=== PATIENT | male | born 2000 | race Caucasian/White ===

== ENCOUNTER 2023-05-19 09:01 | Observation (INO) ==
[2023-05-19] MEDS ORDERED: ACETAMINOPHEN 500 MG TAB PO ONE (09:17)
[2023-05-19 09:35] LABS: Basophils # (auto) 0.03 K/uL (0-0.2); Basophils % (auto) 0.2 %; Eosinophils # (auto) 0.08 K/uL (0-0.50); Eosinophils % (auto) 0.6 %; Hematocrit (blood only) 46.9 % (42.0-52.0); Hemoglobin 16.2 g/dl (14.0-18.0); Immature Granulocytes # (auto) 0.05 K/uL (0.01-0.20); Immature Granulocytes % (auto) 0.3 %; Lymphocytes # (auto) 1.62 K/uL (1.2-3.4); Lymphocytes % (auto) 11.2 %; Mean Corpuscular Hemoglobin 30.4 pg (25.0-34.0); Mean Corpuscular Hgb Conc 34.5 g/dL (32.0-36.0); Mean Platelet Volume 9.4 fL (9.4-12.4); Monocytes # (auto) 0.84 K/uL (0.11-0.59); Monocytes % (auto) 5.8 %; Neutrophils # (auto) 11.85 K/uL (1.40-6.50); Neutrophils % (auto) 81.9 %; Platelet Count 232 K/uL (130-400); RDW Coefficient of Variation 12.3 % (11.5-14.5); RDW Standard Deviation 39.7 fL (36.4-46.3); Red Blood Count 5.33 M/uL (4.70-6.10); White Blood Count 14.47 K/ul (4.8-10.8)
[2023-05-19] MEDS ORDERED: SODIUM CHLORIDE 0.9% 1000ML 1,000 ML IV ONE (09:37)
[2023-05-19] MEDS ORDERED: KETOROLAC TROMETHAMINE 15 MG/ML VIAL IV ONE (09:37)
--- NOTE | 2023-05-19 09:39 | Emergency Department Note ---
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 P ain started last night and he questions if this is secondary to the pizza that he ate. He notes it is worse with movement as well as bending. Improves with laying still. Denies any headache or change in vision. No chest pain or shortness of breath. No dysuria, urgency, or frequency. No trauma. No other exacerbating or remitting factors. No previous abdominal surgeries. PAST MEDICAL HISTORY:See Below PAST SURGICAL HISTORY:See Below FAMILY HISTORY:See Below SOCIAL HISTORY:See Below HOME MEDICATIONS:See Below ALLERGIES:See Below VITALS:See Below PHYSICAL EXAMINATION: GENERAL: Sitting up in bed, alert, well appearing, well nourished, no distress, non-toxic EYE EXAM: normal conjunctiva. OROPHARYNX: no exudate, no erythema, lips, buccal mucosa, and tongue normal and mucous membranes are moist NECK: supple, no nuchal rigidity, no adenopathy, non-tender LUNGS: Clear to auscultation. Normal chest wall mechanics HEART: no murmurs, S1 normal and S2 normal ABDOMEN: abdomen soft, TTP in R mid abd, normo-active bowel sounds, no masses, no rebound or guarding. UPPER EXTREMITIES: upper extremities are grossly normal. LOWER EXTREMITIES: No pitting edema. NEURO EXAM: Normal sensorium, cranial nerves II-XII grossly intact, normal speech, no gross weakness of arms, no gross weakness of legs. MEDICAL DECISION MAKING: Patient is a 22-year-old male who presents ER for right mid abdominal pain. This started yesterday. IV was established blood work was obtained. Labs show leukocytosis of 14,000. No significant anemia. BMP along LFTs bilirubin and lipase is unremarkable. UA was clean. COVID was negative. CT abdomen pelvis confirms acute appendicitis. He was given IV Toradol, cefoxitin and Zofran. He was updated bedside and discussed with general surgery for further evaluation management treatment. Triage Nursing notes reviewed. Limited review of prior medical records performed Vital Signs: reviewed and remarkable for no significant abnormalities Differential diagnosis: Differential diagnoses includes but is not limited to gastritis, peptic ulcer disease, GERD, gallbladder disease, pancreatitis, small bowel obstruction, appendicitis, diverticulitis, hernia, urinary tract infection, torsion, perforation, trauma, infectious. ER treatment provided: See below Diagnostics interpreted by me include EKG and cardiac monitoring as listed below: -Cardiac Monitoring: An order was placed for continuous cardiac monitoring. The monitor shows a rate of 70 with sinus rhythm. -ECG: none -Laboratory studies:Interpreted by me as stated above in MDM and shown below. Imaging studies: Xrays: As interpreted by me:none CTs show: CT abdomen pelvis per my read shows no obvious bowel obstruction CT abdomen pelvis per radiology shows acute appendicitis Consultation(s): Discussed with Dr. Shaver Procedures:none Critical Care: None Past Med/Surg History Social History Smoking Status: Never smoker Preferred Language: Kyrgyz Feels Safe at Home: Yes Allergies Allergies Allergy/AdvReac Type Severity Reaction Status Date / Time azithromycin Allergy Anaphylaxis Verified 05/19/23 09:47 Home Meds Home Medications Medication Instructions Recorded Confirmed No Known Home Medications 05/19/23 05/19/23 Results & Data (ED) Vital Signs Vital Signs - 24 hr 05/19/23 09:04 05/19/23 09:20 05/19/23 10:53 Temperature 36.3 C L Temperature Source Temporal Artery Scan Pulse Rate 86 Pulse Rate [Finger] 68 Pulse Rhythm [Finger] Pulse Strength [Finger] Respiratory Rate 18 20 Respiratory Effort / Characteristics Non-Labored Spontaneous Non-Labored Respiratory Depth Normal Normal Respiratory Pattern Regular Blood Pressure 138/79 Blood Pressure [Right Arm] 130/84 Blood Pressure Mean 98 Blood Pressure Mean [Right Arm] 99 Blood Pressure Position [Right Arm] Pulse Oximetry 98 96 Oxygen Delivery Method Room Air Room Air Room Air Sepsis Recent Fever Within 48 Hours No Sepsis New/Unexplained Change in Mental Status No Sepsis Action Taken by Nursing No Action Required 05/19/23 09:30 05/19/23 09:51 05/19/23 13:01 Temperature Temperature Source Pulse Rate 66 60 Pulse Rate [Finger] 56 L Pulse Rhythm [Finger] Pulse Strength [Finger] Respiratory Rate 20 12 Respiratory Effort / Characteristics Non-Labored Spontaneous Respiratory Depth Normal Respiratory Pattern Blood Pressure 135/86 Blood Pressure [Right Arm] 134/91 Blood Pressure Mean Blood Pressure Mean [Right Arm] 105 Blood Pressure Position [Right Arm] Pulse Oximetry 99 97 Oxygen Delivery Method Room Air Room Air Sepsis Recent Fever Within 48 Hours Sepsis New/Unexplained Change in Mental Status Sepsis Action Taken by Nursing 05/19/23 13:14 Temperature 37 C Temperature Source Oral Pulse Rate Pulse Rate [Finger] 69 Pulse Rhythm [Finger] Regular Pulse Strength [Finger] Normal Respiratory Rate 20 Respiratory Effort / Characteristics Non-Labored Spontaneous Respiratory Depth Normal Respiratory Pattern Regular Blood Pressure Blood Pressure [Right Arm] 129/86 Blood Pressure Mean Blood Pressure Mean [Right Arm] 100 Blood Pressure Position [Right Arm] Sitting Pulse Oximetry 98 Oxygen Delivery Method Room Air Sepsis Recent Fever Within 48 Hours Sepsis New/Unexplained Change in Mental Status Sepsis Action Taken by Nursing Laboratory Data 05/19/23 09:15 05/19/23 09:15 Lab Results 05/19/23 05/19/23 05/19/23 Range/Units 09:15 09:15 09:52 WBC 14.47 H (4.8-10.8) K/ul RBC 5.33 (4.70-6.10) M/uL Hgb 16.2 (14.0-18.0) g/dl Hct 46.9 (42.0-52.0) % MCV 88.0 (80.0-100.0) fL MCH 30.4 (25.0-34.0) pg MCHC 34.5 (32.0-36.0) g/dL RDW Std Deviation 39.7 (36.4-46.3) fL RDW Coeff of Perez 12.3 (11.5-14.5) % Plt Count 232 (130-400) K/uL MPV 9.4 (9.4-12.4) fL Immature Gran % (Auto) 0.3 % Neut % (Auto) 81.9 % Lymph % (Auto) 11.2 % [place] % (Auto) 5.8 % Eos % (Auto) 0.6 % Baso % (Auto) 0.2 % Neut # (Auto) 11.85 H (1.40-6.50) K/uL Lymph # (Auto) 1.62 (1.2-3.4) K/uL [place] # (Auto) 0.84 H (0.11-0.59) K/uL Eos # (Auto) 0.08 (0-0.50) K/uL Baso # (Auto) 0.03 (0-0.2) K/uL Immature Gran # (Auto) 0.05 (0.01-0.20) K/uL Sodium 137 (136-145) mmol/L Potassium 4.0 (3.5-5.1) mmol/L Chloride 102 (98-107) mmol/L Carbon Dioxide 29 (21-32) mmol/L Anion Gap 6 (3-11) BUN 15 (6-23) mg/dl Creatinine 1.12 (0.6-1.4) mg/dl Est Cr Clr Drug Dosing 90.8 ml/min Est GFR ( Amer) 108.3 ml/min Est GFR (Non-Af Amer) 93.4 ml/min BUN/Creatinine Ratio 13.4 (10-20) Glucose 116 H (70-99(Fasting)) mg/dl Calcium 10.1 (8.6-10.3) mg/dl Total Bilirubin 0.6 (0.2-1.0) mg/dl AST 27 (13-39) U/L ALT 37 (7-52) U/L Alkaline Phosphatase 90 (34-104) U/L Total Protein 7.7 (6.0-8.3) gm/dl Albumin 4.7 (3.4-5.0) gm/dl Globulin 3.0 (2.5-4.0) gm/dl Albumin/Globulin Ratio 1.6 (0.9-2) Lipase 24 (11-82) U/L Urine Color Yellow Urine Appearance Clear (Clear) Urine pH 5.5 (4.5-7.5) Ur Specific [place] 1.016 (1.000-1.030) Urine Protein Negative (Negative) Urine Glucose (UA) Negative (Negative) Urine Ketones Negative (Negative) Urine Blood Negative (Negative) Urine Nitrite Negative (Negative) Urine Bilirubin Negative (Negative) Urine Urobilinogen Negative (Negative) Ur Leukocyte Esterase Negative (Negative) SARS-CoV-2, RNA, NAAT (NEGATIVE) 05/19/23 Range/Units 12:02 WBC (4.8-10.8) K/ul RBC (4.70-6.10) M/uL Hgb (14.0-18.0) g/dl Hct (42.0-52.0) % MCV (80.0-100.0) fL MCH (25.0-34.0) pg MCHC (32.0-36.0) g/dL RDW Std Deviation (36.4-46.3) fL RDW Coeff of Perez (11.5-14.5) % Plt Count (130-400) K/uL MPV (9.4-12.4) fL Immature Gran % (Auto) % Neut % (Auto) % Lymph % (Auto) % [place] % (Auto) % Eos % (Auto) % Baso % (Auto) % Neut # (Auto) (1.40-6.50) K/uL Lymph # (Auto) (1.2-3.4) K/uL [place] # (Auto) (0.11-0.59) K/uL Eos # (Auto) (0-0.50) K/uL Baso # (Auto) (0-0.2) K/uL Immature Gran # (Auto) (0.01-0.20) K/uL Sodium (136-145) mmol/L Potassium (3.5-5.1) mmol/L Chloride (98-107) mmol/L Carbon Dioxide (21-32) mmol/L Anion Gap (3-11) BUN (6-23) mg/dl Creatinine (0.6-1.4) mg/dl Est Cr Clr Drug Dosing ml/min Est GFR ( Amer) ml/min Est GFR (Non-Af Amer) ml/min BUN/Creatinine Ratio (10-20) Glucose (70-99(Fasting)) mg/dl Calcium (8.6-10.3) mg/dl Total Bilirubin (0.2-1.0) mg/dl AST (13-39) U/L ALT (7-52) U/L Alkaline Phosphatase (34-104) U/L Total Protein (6.0-8.3) gm/dl Albumin (3.4-5.0) gm/dl Globulin (2.5-4.0) gm/dl Albumin/Globulin Ratio (0.9-2) Lipase (11-82) U/L Urine Color Urine Appearance (Clear) Urine pH (4.5-7.5) Ur Specific [place] (1.000-1.030) Urine Protein (Negative) Urine Glucose (UA) (Negative) Urine Ketones (Negative) Urine Blood (Negative) Urine Nitrite (Negative) Urine Bilirubin (Negative) Urine Urobilinogen (Negative) Ur Leukocyte Esterase (Negative) SARS-CoV-2, RNA, NAAT NEGATIVE (NEGATIVE) Administered Medications Discontinued Medications Acetaminophen (Acetaminophen 500 Mg Tab) 1,000 mg PO NOW ONE Stop: 05/19/23 09:18 Last Admin: 05/19/23 09:27 Dose: 1,000 mg Documented By: DENNYS Sodium Chloride (Nss 1000ml) 1,000 mls @ 999 mls/hr IV .Q1H1M ONE Stop: 05/19/23 10:37 Last Infusion: 05/19/23 10:50 Dose: 0 mls/hr Documented By: Admin: 05/19/23 09:49 Dose: 999 mls/hr Documented By: ROD Cefoxitin Sodium (Mefoxin) 2,000 mg in 60 mls @ 100 mls/hr IV NOW STA Stop: 05/19/23 12:15 Last Infusion: 05/19/23 12:28 Dose: 0 mls/hr Documented By: Admin: 05/19/23 11:57 Dose: 100 mls/hr Documented By: LAURI Ioversol (Optiray 320 100ml) 94 ml IV ONCE ONE Stop: 05/19/23 11:20 Last Admin: 05/19/23 11:19 Dose: 94 ml Documented By: PATTIE Ketorolac Tromethamine (Ketorolac Tromethamine 15 Mg/Ml Vial) 15 mg IV NOW ONE Stop: 05/19/23 09:38 Last Admin: 05/19/23 09:44 Dose: 15 mg Documented By: ROD Morphine Sulfate (Morphine Sulfate 4 Mg/Ml 1 Ml Carp\Vial) 4 mg IV NOW STA Stop: 05/19/23 11:41 Last Admin: 05/19/23 13:07 Dose: Not Given Documented By: NATALIIA Imaging Data Radiologist's Impression: Abdomen/Pelvis CT 05/19/23 09:37 CT abd pelvis IV con only CLINICAL HISTORY: rlq abd pain TECHNIQUE: Helical axial images of the abdomen and pelvis were obtained and displayed. Automated dose lowering techniques and/or adjustment according to patient size were utilized for this exam. This exam was performed with intravenous contrast. CT DOSE: 507.80 mGy.cm COMPARISON: None available at the time of this dictation. FINDINGS: Lower chest: No acute abnormality. Liver: Unremarkable. No focal lesions are seen. Gallbladder and biliary tree: No calcified gallstones. Normal caliber wall. No intra- or extrahepatic biliary ductal dilation. Pancreas: Unremarkable, no focal lesions. Spleen: Splenule is incidentally noted. Adrenals: Unremarkable. Kidneys and ureters: Unremarkable. Bladder: Unremarkable. Reproductive organs: Unremarkable. Bowel: An appendicolith is seen. The appendiceal wall is thickened and the appendix is dilated measuring 15 mm. No wall irregularity is seen to suggest rupture. Lymph nodes Retroperitoneal: Unremarkable. Pelvic: Unremarkable. Mesenteric: Subcentimeter lymph nodes are noted. Peritoneum: Right lower quadrant free fluid is seen. No fluid collection is noted. Vessels: Unremarkable. Abdominal wall: Unremarkable. Bones: Unremarkable. IMPRESSION: There is acute appendicitis without evidence of rupture or abscess formation. ACT 112: Negative or not required by law. Electronically signed by: Tamir Stacy M.D. 05/19/2023 11:34 AM Discharge Plan Visit Data Chief Complaint: Abdominal Pain Stated Complaint: REF BY DOC, LOWER RT ABDOMINAL PAIN ED Provider: Jay Polanco Discharge Problem: Acute appendicitis, Abdominal pain, Leukocytosis Discharge Instructions Interventions: ED Discharge Assessment Last Done: 05/19/23 13:01 Forms Stand Alone Forms: My [employer] Prescriptions Prescriptions: No Action No Known Home Medications Referrals Referrals: PCP,NO [Primary Care Provider] -
[2023-05-19 09:55] LABS: Albumin Globulin Ratio 1.6 (0.9-2); Albumin Level 4.7 gm/dl (3.4-5.0); BUN Creatinine Ratio 13.4 (10-20); Bilirubin,Total 0.6 mg/dl (0.2-1.0); Calcium 10.1 mg/dl (8.6-10.3); Creatinine Clr Calc Pharmacy 90.8 ml/min; Est GFR (African American) 108.3 ml/min; Est GFR (Non-African American) 93.4 ml/min; Total Protein 7.7 gm/dl (6.0-8.3)
[2023-05-19 10:18] LABS: Appearance Urine Clear (Clear); Bilirubin Urine Negative (Negative); Blood Urine Negative (Negative); Color Urine Yellow; Glucose Urine UA Negative (Negative); Ketones Urine Negative (Negative); Leukocyte Esterase Urine Negative (Negative); Nitrite Urine Negative (Negative); Protein Urine Negative (Negative); Specific Gravity Urine 1.016 (1.000-1.030); Urobilinogen Urine Negative (Negative); pH Urine 5.5 (4.5-7.5)
[2023-05-19] MEDS ORDERED: OPTIRAY 320 100ml IV ONE (11:19)
--- NOTE | 2023-05-19 11:35 | CT Scan Report ---
CT abd pelvis IV con only CLINICAL HISTORY: rlq abd pain TECHNIQUE: Helical axial images of the abdomen and pelvis were obtained and displayed. Automated dose lowering techniques and/or adjustment according to patient size were utilized for this exam. This e xam was performed with intravenous contrast. CT DOSE: 507.80 mGy.cm COMPARISON: None available at the time of this dictation. FINDINGS: Lower chest: No acute abnormality. Liver: Unremarkable. No focal lesions are seen. Gallbladder and biliary tree: No calcified gallstones. Normal caliber wall. No intra- or extrahepatic biliary ductal dilation. Pancreas: Unremarkable, no focal lesions. Spleen: Splenule is incidentally noted. Adrenals: Unremarkable. Kidneys and ureters: Unremarkable. Bladder: Unremarkable. Reproductive organs: Unremarkable. Bowel: An appendicolith is seen. The appendiceal wall is thickened and the appendix is dilated measur ing 15 mm. No wall irregularity is seen to suggest rupture. Lymph nodes Retroperitoneal: Unremarkable. Pelvic: Unremarkable. Mesenteric: Subcentimeter lymph nodes are noted. Peritoneum: Right lower quadrant free fluid is seen. No fluid collection is noted. Vessels: Unremarkable. Abdominal wall: Unremarkable. Bones: Unremarkable. IMPRESSION: There is acute appendicitis without evidence of rupture or abscess formation. ACT 112: Negative or not required by law. Electronically signed by: Tamir Stacy M.D. 05/19/2023 11:34 AM
[2023-05-19] MEDS ORDERED: cefOXitin 2,000 MG/60 ML BAG IV STA (11:40)
--- NOTE | 2023-05-19 12:05 | Surgery Consultation ---
Date of Consultation May 19, 2023 Assessment & Plan (1) Acute appendicitis: Assessment: Patient is a 22 years old gentleman who presented with one day history of right lower quadrant abdominal pain recent nausea no vomiting, WBC 14,000, CT scan shows acute appendicitis. Plan: Based on the patient history physical exam labs and a CT scan finding, I recommend to do a laparoscopy appendectomy possible open, I talked to patient about benefits, risks and alternatives of the procedure. I indicated the risks may include but not limited to such as bleeding, infection, abscess, injury other organs, bowel obstruction and incisional hernia. Patient understand he agreed to proceed with procedure and he signed informed consent. I answered all questions. pre-op antibiotic. History of Present Illness Reason for Consultation: acute appendicitis Requesting Physician: Jay Menjivar History of Present Illness CC: Right lower quadrant abdominal pain HPI: Patient is a 22 years old with a gentleman for his activities of 1 day history right lower quadrant pain, the pain started last night around 10 PM, the pain located in the right lower quadrant with nausea no vomiting, patient felt more pain this morning and patient come to the ER, the patient feels more pain when patient bending and moving. Patient denies diarrhea or fever, no dysuria, patient had a CT scan done showed acute appendicitis. Allergies Allergy/AdvReac Type Severity Reaction Status Date / Time azithromycin Allergy Anaphylaxis Verified 05/19/23 09:47 Home Medications Medication Instructions Recorded Confirmed Type No Known Home Medications 05/19/23 05/19/23 History Patient History Social History Smoking Status: Never smoker Preferred Language: Kosovan Feels Safe at Home: Yes Review of Systems Constitutional: as per Subjective / HPI Eyes: as per Subjective / HPI Respiratory: as per Subjective / HPI Cardiovascular: as per Subjective / HPI Gastrointestinal: as per Subjective / HPI Genitourinary: + as per Subjective / HPI Musculoskeletal: as per Subjective / HPI Neurologic: as per Subjective / HPI Psychiatric: as per Subjective / HPI Endocrine: as per Subjective / HPI Hematologic / Lymphatic: as per Subjective / HPI Physical Exam Constitutional: WD/WN, vitals as above Eyes: PERRL, conjunctivae normal, anicteric sclerae Neck: trachea midline, no thyromegaly Respiratory: normal respiratory effort, lungs clear to auscultation Cardiovascular: RRR, no murmur, no edema Gastrointestinal (Abdomen): soft, tenderness at RLQ, no rebound pain, no distend, BS +, Musculoskeletal: no cyanosis or clubbing, extremities motor strength 5/5 Neurologic: patellar DTR's 2+ bilat, sensation intact Psychiatric: A+Ox3, euthymic affect Results & Data Vital Signs (Past 12 Hours) Vital Signs Temp Pulse Pulse Resp BP BP Pulse Ox 05/19/23 09:51 56 L 20 134/91 99 05/19/23 09:30 66 05/19/23 10:53 68 20 130/84 96 05/19/23 09:20 05/19/23 09:04 36.3 C L 86 18 138/79 98 O2 Del Method 05/19/23 09:51 Room Air 05/19/23 09:30 05/19/23 10:53 Room Air 05/19/23 09:20 Room Air 05/19/23 09:04 Room Air Laboratory Results Lab Results 05/19/23 05/19/23 05/19/23 Range/Units 09:15 09:15 09:52 WBC 14.47 H (4.8-10.8) K/ul RBC 5.33 (4.70-6.10) M/uL Hgb 16.2 (14.0-18.0) g/dl Hct 46.9 (42.0-52.0) % MCV 88.0 (80.0-100.0) fL MCH 30.4 (25.0-34.0) pg MCHC 34.5 (32.0-36.0) g/dL RDW Std Deviation 39.7 (36.4-46.3) fL RDW Coeff of Perez 12.3 (11.5-14.5) % Plt Count 232 (130-400) K/uL MPV 9.4 (9.4-12.4) fL Immature Gran % (Auto) 0.3 % Neut % (Auto) 81.9 % Lymph % (Auto) 11.2 % [place] % (Auto) 5.8 % Eos % (Auto) 0.6 % Baso % (Auto) 0.2 % Neut # (Auto) 11.85 H (1.40-6.50) K/uL Lymph # (Auto) 1.62 (1.2-3.4) K/uL [place] # (Auto) 0.84 H (0.11-0.59) K/uL Eos # (Auto) 0.08 (0-0.50) K/uL Baso # (Auto) 0.03 (0-0.2) K/uL Immature Gran # (Auto) 0.05 (0.01-0.20) K/uL Sodium 137 (136-145) mmol/L Potassium 4.0 (3.5-5.1) mmol/L Chloride 102 (98-107) mmol/L Carbon Dioxide 29 (21-32) mmol/L Anion Gap 6 (3-11) BUN 15 (6-23) mg/dl Creatinine 1.12 (0.6-1.4) mg/dl Est Cr Clr Drug Dosing 90.8 ml/min Est GFR ( Amer) 108.3 ml/min Est GFR (Non-Af Amer) 93.4 ml/min BUN/Creatinine Ratio 13.4 (10-20) Glucose 116 H (70-99(Fasting)) mg/dl Calcium 10.1 (8.6-10.3) mg/dl Total Bilirubin 0.6 (0.2-1.0) mg/dl AST 27 (13-39) U/L ALT 37 (7-52) U/L Alkaline Phosphatase 90 (34-104) U/L Total Protein 7.7 (6.0-8.3) gm/dl Albumin 4.7 (3.4-5.0) gm/dl Globulin 3.0 (2.5-4.0) gm/dl Albumin/Globulin Ratio 1.6 (0.9-2) Lipase 24 (11-82) U/L Urine Color Yellow Urine Appearance Clear (Clear) Urine pH 5.5 (4.5-7.5) Ur Specific [place] 1.016 (1.000-1.030) Urine Protein Negative (Negative) Urine Glucose (UA) Negative (Negative) Urine Ketones Negative (Negative) Urine Blood Negative (Negative) Urine Nitrite Negative (Negative) Urine Bilirubin Negative (Negative) Urine Urobilinogen Negative (Negative) Ur Leukocyte Esterase Negative (Negative) Diagnostic Findings CT abd pelvis IV con only CLINICAL HISTORY: rlq abd pain TECHNIQUE: Helical axial images of the abdomen and pelvis were obtained and displayed. Automated dose lowering techniques and/or adjustment according to patient size were utilized for this exam. This exam was performed with intravenous contrast. CT DOSE: 507.80 mGy.cm COMPARISON: None available at the time of this dictation. FINDINGS: Lower chest: No acute abnormality. Liver: Unremarkable. No focal lesions are seen. Gallbladder and biliary tree: No calcified gallstones. Normal caliber wall. No intra- or extrahepatic biliary ductal dilation. Pancreas: Unremarkable, no focal lesions. Spleen: Splenule is incidentally noted. Adrenals: Unremarkable. Kidneys and ureters: Unremarkable. Bladder: Unremarkable. Reproductive organs: Unremarkable. Bowel: An appendicolith is seen. The appendiceal wall is thickened and the appendix is dilated measuring 15 mm. No wall irregularity is seen to suggest rupture. Lymph nodes Retroperitoneal: Unremarkable. Pelvic: Unremarkable. Mesenteric: Subcentimeter lymph nodes are noted. Peritoneum: Right lower quadrant free fluid is seen. No fluid collection is noted. Vessels: Unremarkable. Abdominal wall: Unremarkable. Bones: Unremarkable. IMPRESSION: There is acute appendicitis without evidence of rupture or abscess formation. ACT 112: Negative or not required by law.
[2023-05-19] MEDS: MoRPHine SULFATE 4 MG/ML 1 ML CARP\\VIAL IV STA ×2 (12:06→13:07)
--- NOTE | 2023-05-19 12:20 | History & Physical Bridge Note ---
Date of Service May 19, 2023 History & Physical Bridge Note I have examined the patient, reviewed the History & Physical and in the interval since the performance of the History & Physical I have noted the following changes of clinical significance: no changes noted
[2023-05-19] MEDS ORDERED: BUPIVACAINE 0.5 % 5 MG/1 ML MPF 30ML VIAL ONE (13:47)
[2023-05-19] MEDS ORDERED: LIDOCAINE 1% LOCAL 20 ML VIAL ONE (13:47)
[2023-05-19] MEDS ORDERED: BACITRACIN OINT 15 GM TUBE ONE (13:47)
--- NOTE | 2023-05-19 13:51 | Anesthesiology Consultation ---
Date of Service May 19, 2023 Assessment & Plan (1) Encounter for pre-operative examination: Chart Review Chart Review: Acceptable Risk for Surgery History Surgery Operation Date: 05/19/23 08:50 Proposed Procedures p Laparoscopic Appendectomy - Cassy Shaver MD Height/Weight Height: 5 ft 5 in Weight: 63.8 kg Allergies Allergy/AdvReac Type Severity Reaction Status Date / Time azithromycin Allergy Anaphylaxis Verified 05/19/23 09:47 Medications Home Medications Medication Instructions Recorded Confirmed Last Taken No Known Home Medications 05/19/23 05/19/23 Unknown NPO Date Last Intake of Fluids: 05/19/23 Time Last Intake of Fluids: 09:30 Last Intake of Fluids Comment: Water, 6oz Date Last Intake of Solids: 05/19/23 Time Last Intake of Solids: 02:00 Last Intake of Solids Comment: Mini personal pizza Past Medical History Medical History (Updated 05/19/23 @ 13:51 by Darin White MD) No pertinent past medical history Past Surgical History Surgical History (Updated 05/19/23 @ 13:51 by Darin White MD) No pertinent past surgical history Social History Smoking Status: Never smoker Physical Exam Vital Signs Last Vital Signs Temp 37 C 05/19/23 13:14 Pulse 69 05/19/23 13:14 Resp 20 05/19/23 13:14 BP 129/86 05/19/23 13:14 Pulse Ox 98 05/19/23 13:14 O2 Del Method Room Air 05/19/23 13:14 Testing Laboratory Results 05/19/23 09:15 05/19/23 09:15 Urine Color Yellow 05/19/23 09:52 Urine Appearance Clear (Clear) 05/19/23 09:52 Urine pH 5.5 (4.5-7.5) 05/19/23 09:52 Ur Specific [place] 1.016 (1.000-1.030) 05/19/23 09:52 Urine Protein Negative (Negative) 05/19/23 09:52 Urine Glucose (UA) Negative (Negative) 05/19/23 09:52 Urine Ketones Negative (Negative) 05/19/23 09:52 Urine Nitrite Negative (Negative) 05/19/23 09:52 Ur Leukocyte Esterase Negative (Negative) 05/19/23 09:52
[2023-05-19] MEDS ORDERED: fentaNYL citrate PF 100 MCG/2 ML VIAL IV PRN (14:03)
[2023-05-19] MEDS ORDERED: PROMETHAZINE HCL 6.25 MG in SODIUM CHLORIDE 0.9% 50 ML IV PRN (14:03)
[2023-05-19] MEDS ORDERED: ONDANSETRON INJ 2 MG/ML 2 ML VIAL IV PRN (14:03)
[2023-05-19] MEDS ORDERED: KETOROLAC 30 MG/ML VIAL IV PRN (14:03)
[2023-05-19] MEDS ORDERED: ATROPINE SULFATE 0.1 MG/ML 10ML SYR IV PRN (14:03)
[2023-05-19] MEDS ORDERED: fentaNYL citrate PF 100 MCG/2 ML VIAL ONE (14:08)
[2023-05-19] MEDS ORDERED: MIDAZOLAM HCL 1 MG/ML 2ML VIAL ONE (14:08)
[2023-05-19] MEDS ORDERED: PROPOFOL IV EMULSION 10 MG/ML 20 ML VIAL IV ONE (14:51)
[2023-05-19] MEDS ORDERED: ROCURONIUM BROMIDE 10 MG/ML 5 ML VIAL IV ONE (14:51)
[2023-05-19] MEDS ORDERED: ONDANSETRON INJ 2 MG/ML 2 ML VIAL ONE (14:51)
[2023-05-19] MEDS ORDERED: DEXAMETHASONE SOD INJ 4 MG/ML VIAL ONE (14:51)
[2023-05-19] MEDS ORDERED: GLYCOPYRROLATE 0.2 MG/ML VIAL ONE (14:51)
[2023-05-19] MEDS ORDERED: KETOROLAC 30 MG/ML VIAL ONE (14:52)
[2023-05-19] MEDS ORDERED: SUGAMMADEX SODIUM 200 MG/2 ML VIAL IV ONE (14:53)
--- NOTE | 2023-05-19 15:15 | Post Operative Brief Note ---
Immediate Post Op Note v1 Date of Surgery May 19, 2023 Pre & Post Diagnosis Operation Date: 05/19/23 08:50 per-op diagnosis: acute appendicitis post-op diagnosis: acute appendicitis I identified the patient and participated in the time-out.: Yes Procedure Operation Date: 05/19/23 08:50 laparoscopic appendectomy Surgeon Cassy Shaver MD [employer] [facility] [place] Estimated Blood Loss 10 Findings Consistent with Post-Op Diagnosis acute appendicitis Fluids 900ml Specimens appendix Anesthesia Type General Complications none Disposition Accompanied Patient To Recovery: Yes
--- NOTE | 2023-05-19 15:48 | Operative Report ---
Post Operative Report Pre & Post Diagnosis Operation Date: 05/19/23 08:50 pre-op diagnosis: acute appendicitis, post-op diagnosis: acute appendicitis, I identified the patient and participated in the time-out.: Yes Procedure Operation Date: 05/19/23 08:50 laparoscopic appendectomy Surgeon Cassy Shaver MD Nursery Nurse [facility] [place] Estimated Blood Loss 10 Findings Consistent with Post-Op Diagnosis acute appendicitis Fluids 900ml Specimens appendix Drains none Complications none Disposition Accompanied Patient To Recovery: Yes Indications Patient is a 22 years old gentleman who presented to the ED with 1 day history of right lower quadrant pain patient had a CT scan that shows acute appendicitis, I recommended to do laparoscopy appendectomy possible open. I did talk to patient about the benefit and risk and alternatives of the procedure. I indicated that the risks may include but not limited, such as bleeding, infection, injury or other opens, abscess, incisional hernia, and bowel obstruction. patient understand he signed informed consent. I answered all questions. Description of Procedure After identified patient to verify procedure, we brought patient to the OR and put the patient on the supine position on the OR table. the patient received a SCD on bilateral legs for prevent DVT, also patient received 2 g cefoxitin IV for prophylactic antibiotic. Patient received general anesthesia without difficulty. The patient abdomen was pepped and draped in routine fashion after timeout, IV injections of local anesthesia by using 1% lidocaine and made mixes 0.5% Marcaine just above the umbilical. I made small incisions just above umbilical area, open fascia and peritoneal layer under the direct region, put a Hurtado trocar in, connected to CO2 to create pneumoperitoneum for low rate at 6 L/min, pressure no more than 14 mmHg. Once we get a nice pneumoperitoneum, we put camera in to look inside of abdomen, normal finding on small and large bowel. however, the appendix is enlarge and inflammation, the appendix diameter is about 1.2 cm. Once confirmed diagnosis of acute appendicitis, will make with another two 5 mm trocar on the left lower quadrant area. Limit use harmonic to take down the appendiceal, to identify the base of the appendix, I used 45 mm Endo MELODY staple transection on the base of appendix through catch bag. then very inserted Hurtado trocar again and connected to CO2 to create pneumoperitoneum again, and look around the abdomen staple line intact no leak and no active bleeding. Then I removed all trocars under direct vision no active bleeding from trocar sites. Pneumoperitoneum was released. then I close umbilical incision fascia layer by using 0 Vicryl [id number] x2. closed subcutaneous therapy using 2-0 Vicryl interoperatively and close skin by using 4-0 Vicryl continuous running close another two 5 MM trocars as a skin only by used 4-0 Vicryl. We put a dressing on the patient tolerated procedure well all instrument needle sponge count correct x2 at end of case. patient transferred to recovery room in stable condition specimen sent to pathology. the certified surgical first assistant Court is necessary for the procedure, her roles are hold the camera, retraction and exposure. thank you I attest to the content of the Intraoperative Record and any orders documented therein. Any exceptions are noted below.
--- NOTE | 2023-05-19 16:08 | Anesthesiology Progress Note ---
Date of Service May 19, 2023 Anesthesia Post Procedure Vital Signs Vital Signs: Temp Pulse Pulse Pulse Resp BP BP 05/19/23 16:05 37.1 C 56 L 20 120/69 05/19/23 15:55 78 16 125/65 05/19/23 15:45 68 16 115/67 05/19/23 15:37 36.5 C 95 H 16 119/69 05/19/23 13:14 37 C 69 20 129/86 05/19/23 13:01 60 12 135/86 05/19/23 09:51 56 L 20 134/91 05/19/23 09:30 66 05/19/23 10:53 68 20 130/84 05/19/23 09:20 05/19/23 09:04 36.3 C L 86 18 138/79 Pulse Ox O2 Del Method 05/19/23 16:05 99 Room Air 05/19/23 15:55 98 Room Air 05/19/23 15:45 98 Room Air 05/19/23 15:37 100 Room Air 05/19/23 13:14 98 Room Air 05/19/23 13:01 97 Room Air 05/19/23 09:51 99 Room Air 05/19/23 09:30 05/19/23 10:53 96 Room Air 05/19/23 09:20 Room Air 05/19/23 09:04 98 Room Air Pain Intensity Right Lower Abdomen: Pain Intensity: 6 Transfer of Care Handoff Completed per policy Notes Mental Status: alert / awake / arousable Patient Amnestic to Procedure: Yes Nausea / Vomiting: adequately controlled Pain: adequately controlled Airway Patency, RR, SpO2: stable & adequate BP & HR: stable & adequate Hydration State: stable & adequate Anesthetic Complications: no major complications apparent
[2023-05-19] MEDS ORDERED: HYDROmorphone INJ 0.5 MG/0.5 ML SYR IV PRN (16:42)
[2023-05-19] MEDS ORDERED: IBUPROFEN 600 MG TAB PO PRN (16:42)
[2023-05-19] MEDS ORDERED: ACETAMINOPHEN 325 MG TAB PO PRN (16:42)
[2023-05-19] MEDS ORDERED: oxyCODONE/ACETAMINOPHEN 5mg/325mg TAB PO PRN (16:42)
[2023-05-19] MEDS: KETOROLAC TROMETHAMINE 15 MG/ML VIAL IM PRN (17:49)
[2023-05-19] MEDS: LACTATED RINGER'S 1,000 ML IV SCH (17:50)
[2023-05-20] MEDS: LACTATED RINGER'S 1,000 ML IV SCH (05:45)
[2023-05-20 06:36] LABS: Basophils # (auto) 0.02 K/uL (0-0.2); Basophils % (auto) 0.1 %; Eosinophils # (auto) 0.01 K/uL (0-0.50); Eosinophils % (auto) 0.1 %; Hematocrit (blood only) 39.6 % (42.0-52.0); Hemoglobin 14.1 g/dl (14.0-18.0); Immature Granulocytes # (auto) 0.05 K/uL (0.01-0.20); Immature Granulocytes % (auto) 0.4 %; Lymphocytes # (auto) 1.53 K/uL (1.2-3.4); Mean Corpuscular Hemoglobin 31.3 pg (25.0-34.0); Mean Corpuscular Hgb Conc 35.6 g/dL (32.0-36.0); Mean Platelet Volume 9.7 fL (9.4-12.4); Monocytes # (auto) 0.73 K/uL (0.11-0.59); Monocytes % (auto) 5.3 %; Neutrophils # (auto) 11.52 K/uL (1.40-6.50); Neutrophils % (auto) 83.1 %; Platelet Count 204 K/uL (130-400); RDW Coefficient of Variation 12.2 % (11.5-14.5); RDW Standard Deviation 39.3 fL (36.4-46.3); White Blood Count 13.86 K/ul (4.8-10.8)
[2023-05-20] MEDS: KETOROLAC TROMETHAMINE 15 MG/ML VIAL IM PRN (09:37)
--- NOTE | 2023-05-20 10:58 | Surgery Progress Note ---
Date of Service May 20, 2023 Assessment & Plan (1) Acute appendicitis: Plan: Assessment: Patient is a 22 years old gentleman who presented with one day history of right lower quadrant abdominal pain recent nausea no vomiting, WBC 14,000, CT scan shows acute appendicitis. Plan: Based on the patient history physical exam labs and a CT scan finding, I recommend to do a laparoscopy appendectomy possible open, I talked to patient about benefits, risks and alternatives of the procedure. I indicated the risks may include but not limited to such as bleeding, infection, abscess, injury other organs, bowel obstruction and incisional hernia. Patient understand he agreed to proceed with procedure and he signed informed consent. I answered all questions. pre-op antibiotic. 05/20/2023 10:55 AM F/U S/P laparoscopic appendectomy, POD1. pt is doing fine, tolerated diet, I update Or finding to pt and his parent. pt wants to go home today. I gave pt post-op care instruction, F/U 2-3 weeks, Admission and Anticipated Discharge Date Admission Date: May 19, 2023 Subjective S/P laparoscopic appendectomy, POD 1 pt is doing fine, no significant incisional or abdominal pain, tolerated diet, no nausea, no vomiting, no fever. Review of Systems Constitutional: as per Subjective / HPI Eyes: as per Subjective / HPI Respiratory: as per Subjective / HPI Cardiovascular: as per Subjective / HPI Gastrointestinal: as per Subjective / HPI Genitourinary: + as per Subjective / HPI Musculoskeletal: as per Subjective / HPI Neurologic: as per Subjective / HPI Psychiatric: as per Subjective / HPI Endocrine: as per Subjective / HPI Hematologic / Lymphatic: as per Subjective / HPI Physical Exam Constitutional: WD/WN, vitals as above Eyes: PERRL, conjunctivae normal, anicteric sclerae Neck: trachea midline, no thyromegaly Respiratory: normal respiratory effort, lungs clear to auscultation Cardiovascular: RRR, no murmur, no edema Gastrointestinal (Abdomen): soft, mild tenderness at incision sites, no rebound pain, no distend, BS +, all incisions intact, no redness. Musculoskeletal: no cyanosis or clubbing, extremities motor strength 5/5 Neurologic: patellar DTR's 2+ bilat, sensation intact Psychiatric: A+Ox3, euthymic affect Results & Data Vital Signs (Past 12 Hours) Vital Signs Temp Pulse Resp BP BP Pulse Ox O2 Del Method 05/20/23 07:42 37 C 62 16 106/60 Room Air 05/20/23 03:18 36.7 C 52 L 16 103/51 L 98 Room Air 05/19/23 23:03 36.7 C 74 15 126/66 97 Room Air Laboratory Results Lab Results 05/19/23 05/19/23 05/19/23 Range/Units 09:15 09:15 09:52 WBC 14.47 H (4.8-10.8) K/ul RBC 5.33 (4.70-6.10) M/uL Hgb 16.2 (14.0-18.0) g/dl Hct 46.9 (42.0-52.0) % MCV 88.0 (80.0-100.0) fL MCH 30.4 (25.0-34.0) pg MCHC 34.5 (32.0-36.0) g/dL RDW Std Deviation 39.7 (36.4-46.3) fL RDW Coeff of Perez 12.3 (11.5-14.5) % Plt Count 232 (130-400) K/uL MPV 9.4 (9.4-12.4) fL Immature Gran % (Auto) 0.3 % Neut % (Auto) 81.9 % Lymph % (Auto) 11.2 % Garrard % (Auto) 5.8 % Eos % (Auto) 0.6 % Baso % (Auto) 0.2 % Neut # (Auto) 11.85 H (1.40-6.50) K/uL Lymph # (Auto) 1.62 (1.2-3.4) K/uL Garrard # (Auto) 0.84 H (0.11-0.59) K/uL Eos # (Auto) 0.08 (0-0.50) K/uL Baso # (Auto) 0.03 (0-0.2) K/uL Immature Gran # (Auto) 0.05 (0.01-0.20) K/uL Sodium 137 (136-145) mmol/L Potassium 4.0 (3.5-5.1) mmol/L Chloride 102 (98-107) mmol/L Carbon Dioxide 29 (21-32) mmol/L Anion Gap 6 (3-11) BUN 15 (6-23) mg/dl Creatinine 1.12 (0.6-1.4) mg/dl Est Cr Clr Drug Dosing 90.8 ml/min Est GFR ( Amer) 108.3 ml/min Est GFR (Non-Af Amer) 93.4 ml/min BUN/Creatinine Ratio 13.4 (10-20) Glucose 116 H (70-99(Fasting)) mg/dl Calcium 10.1 (8.6-10.3) mg/dl Total Bilirubin 0.6 (0.2-1.0) mg/dl AST 27 (13-39) U/L ALT 37 (7-52) U/L Alkaline Phosphatase 90 (34-104) U/L Total Protein 7.7 (6.0-8.3) gm/dl Albumin 4.7 (3.4-5.0) gm/dl Globulin 3.0 (2.5-4.0) gm/dl Albumin/Globulin Ratio 1.6 (0.9-2) Lipase 24 (11-82) U/L Urine Color Yellow Urine Appearance Clear (Clear) Urine pH 5.5 (4.5-7.5) Ur Specific Thayer 1.016 (1.000-1.030) Urine Protein Negative (Negative) Urine Glucose (UA) Negative (Negative) Urine Ketones Negative (Negative) Urine Blood Negative (Negative) Urine Nitrite Negative (Negative) Urine Bilirubin Negative (Negative) Urine Urobilinogen Negative (Negative) Ur Leukocyte Esterase Negative (Negative) SARS-CoV-2, RNA, NAAT (NEGATIVE) 05/19/23 05/20/23 Range/Units 12:02 06:19 WBC 13.86 H (4.8-10.8) K/ul RBC 4.50 L (4.70-6.10) M/uL Hgb 14.1 (14.0-18.0) g/dl Hct 39.6 L (42.0-52.0) % MCV 88.0 (80.0-100.0) fL MCH 31.3 (25.0-34.0) pg MCHC 35.6 (32.0-36.0) g/dL RDW Std Deviation 39.3 (36.4-46.3) fL RDW Coeff of Perez 12.2 (11.5-14.5) % Plt Count 204 (130-400) K/uL MPV 9.7 (9.4-12.4) fL Immature Gran % (Auto) 0.4 % Neut % (Auto) 83.1 % Lymph % (Auto) 11.0 % Garrard % (Auto) 5.3 % Eos % (Auto) 0.1 % Baso % (Auto) 0.1 % Neut # (Auto) 11.52 H (1.40-6.50) K/uL Lymph # (Auto) 1.53 (1.2-3.4) K/uL Garrard # (Auto) 0.73 H (0.11-0.59) K/uL Eos # (Auto) 0.01 (0-0.50) K/uL Baso # (Auto) 0.02 (0-0.2) K/uL Immature Gran # (Auto) 0.05 (0.01-0.20) K/uL Sodium (136-145) mmol/L Potassium (3.5-5.1) mmol/L Chloride (98-107) mmol/L Carbon Dioxide (21-32) mmol/L Anion Gap (3-11) BUN (6-23) mg/dl Creatinine (0.6-1.4) mg/dl Est Cr Clr Drug Dosing ml/min Est GFR ( Amer) ml/min Est GFR (Non-Af Amer) ml/min BUN/Creatinine Ratio (10-20) Glucose (70-99(Fasting)) mg/dl Calcium (8.6-10.3) mg/dl Total Bilirubin (0.2-1.0) mg/dl AST (13-39) U/L ALT (7-52) U/L Alkaline Phosphatase (34-104) U/L Total Protein (6.0-8.3) gm/dl Albumin (3.4-5.0) gm/dl Globulin (2.5-4.0) gm/dl Albumin/Globulin Ratio (0.9-2) Lipase (11-82) U/L Urine Color Urine Appearance (Clear) Urine pH (4.5-7.5) Ur Specific Thayer (1.000-1.030) Urine Protein (Negative) Urine Glucose (UA) (Negative) Urine Ketones (Negative) Urine Blood (Negative) Urine Nitrite (Negative) Urine Bilirubin (Negative) Urine Urobilinogen (Negative) Ur Leukocyte Esterase (Negative) SARS-CoV-2, RNA, NAAT NEGATIVE (NEGATIVE)
--- NOTE | 2023-05-20 11:26 | Discharge Summary ---
Date of Service May 20, 2023 Admission HPI Per Admitting Provider admission date: May 19 2023 Discharge date: May 20, 2023 Admission diagnosis acute appendicitis Operation: Laparoscopy appendectomy Surgeon Cassy Menezes Details of the discharge summary: Patient is a 22 years old gentleman who presented to ED with a 1 day history right lower quadrant pain, and patient had the CT scan diagnosis acute appendicitis. we took patient to the OR. we did a laparoscopic appendectomy. patient tolerated the procedure well. after procedure patient was transferred to regular room and the patient doing fine. He tolerance of diet overnight, no nausea, no vomiting, and no fever, On physical exam: blood pressure of 106/62; heart rate is 62; respiratory rate is 16; temperature is 37; O2 saturation 98% on room air patient is alert awake oriented x3 HEENT is normal. neurological exam normal, on neck no JVD. on the chest bilateral lung sounds clear, the heart is normal S1-S2, no murmur, abdomen: soft , mild tenderness around the incision site, no rebound pain, no distention, all incision intact, no redness. bowel sound positive, on extremity, no edema. patient labs shows a WBC is 13,000 and patient will go home today we gave patient postop care instruction. we will give patient 5 days of Cipro and the Flagyl po antibiotic. I will follow-up patient in 2 weeks Admission Exam (Per Admitting) Constitutional WD/WN, vitals as above Eyes PERRL, conjunctivae normal, anicteric sclerae Neck trachea midline, no thyromegaly Respiratory normal respiratory effort, lungs clear to auscultation Cardiovascular RRR, no murmur, no edema Musculoskeletal no cyanosis or clubbing, extremities motor strength 5/5 Neurologic patellar DTR's 2+ bilat, sensation intact Psychiatric A+Ox3, euthymic affect Discharge Data Consultations 05/19/23 11:40 ED Decision to Admit Stat Procedures Performed Operation Date: 05/19/23 08:50 Actual Procedures p Laparoscopic Appendectomy - Cassy Shaver MD Hospital Course (1) Acute appendicitis: Assessment: Patient is a 22 years old gentleman who presented with one day history of right lower quadrant abdominal pain recent nausea no vomiting, WBC 14,000, CT scan shows acute appendicitis. Plan: Based on the patient history physical exam labs and a CT scan finding, I recommend to do a laparoscopy appendectomy possible open, I talked to patient about benefits, risks and alternatives of the procedure. I indicated the risks may include but not limited to such as bleeding, infection, abscess, injury other organs, bowel obstruction and incisional hernia. Patient understand he agreed to proceed with procedure and he signed informed consent. I answered all questions. pre-op antibiotic. 05/20/2023 10:55 AM F/U S/P laparoscopic appendectomy, POD1. pt is doing fine, tolerated diet, I update Or finding to pt and his parent. pt wants to go home today. I gave pt post-op care instruction, F/U 2-3 weeks,
== END 2023-05-20 12:02 | disposition home or self-care (01) ==
LOC: ED 09:01 → 3W 13:01 → INTOOBSV 15:26 → 3W 15:26